=== PATIENT | male | born 1955 | race Hispanic/Latino ===

== ENCOUNTER 2024-12-15 09:44 | Outpatient (CLI) | payer OTHER ==
[2024-12-15 13:32] LABS: Estimated GFR - POC 35.0
== END 2024-12-15 09:45 | disposition home or self-care (01) ==
LOC: CSHCT 09:44
PROVIDERS: ATTEND Radiology Radiation Oncology
DX: C20 Malignant neoplasm of rectum (principal); R91.8 Other nonspecific abnormal finding of lung field; R59.0 Localized enlarged lymph nodes
CPT/HCPCS: 71260; 82565